=== PATIENT | female | born 1970 | race Hispanic/Latino ===

== ENCOUNTER 2017-06-04 19:19 | Emergency (ER) | payer OTHER ==
[~2017-06-04] VITALS: Ht 165.1 cm; Wt 70.3 kg
[2017-06-04] MEDS ORDERED: IBUPROFEN 400 MG TAB PO ONE (20:00)
[2017-06-04] MEDS ORDERED: DEXAMETHASONE SOD PHOS 10 MG/1 ML VIAL INJ ONE (20:15)
[2017-06-04 20:59] VITALS: BP 144/79
== END 2017-06-04 20:30 | disposition home or self-care (01) ==
LOC: FSED 19:19
DX: R50.9 Fever, unspecified (principal); R05 Cough; J20.9 Acute bronchitis, unspecified
CPT/HCPCS: 71046; 96372; 99282; J1100